=== PATIENT | male | born 1995 | race African-American/Black ===

== ENCOUNTER 2018-03-17 23:20 | Emergency (ER) | payer SELFPAY ==
[~2018-03-17] VITALS: Ht 185.4 cm; Wt 75.0 kg
[~2018-03-17 23:20] MED LIST: ALBUTEROL S2.5 MG/.5 IN; ALBUTEROL0.083 % IN; AMOXIL500 M1 OR; ATUSS DS OR; ORAPRED ODT30 MG OR; PENICILLN VK500 MG PO; PERCOCET 5/325M1 TAB OR; ULTRAM50 MG PO
[2018-03-18 00:24] VITALS: BP 122/70
== END 2018-03-18 | disposition left against medical advice (07) | DRG 392 ==
LOC: ED 23:20
DX: R11.10 Vomiting, unspecified (principal); R19.7 Diarrhea, unspecified; F17.290 Nicotine dependence, other tobacco product, uncomplicated

== ENCOUNTER 2022-11-29 03:01 | Emergency (ER) | payer SELFPAY ==
[~2022-11-29] VITALS: Ht 185.4 cm; Wt 72.0 kg
[2022-11-29] VITALS (11 sets, daily range): BP systolic 110–132; BP diastolic 64–89
[2022-11-29] MEDS ORDERED: AMOXICILLIN500 MG PO (05:30)
[2022-11-29] MEDS ORDERED: FIORICET PO (05:30)
== END 2022-11-29 05:40 | disposition home or self-care (01) | DRG 153 ==
LOC: ED 03:01
DX: J02.9 Acute pharyngitis, unspecified (principal); R51.9 Headache, unspecified; F17.200 Nicotine dependence, unspecified, uncomplicated; Z20.822 Contact with and (suspected) exposure to COVID-19

== ENCOUNTER 2023-05-11 19:29 | Emergency (ER) | payer SELFPAY ==
[~2023-05-11] VITALS: Ht 188 cm; Wt 69.0 kg
[~2023-05-11 19:29] MED LIST changes: +AMOXICILLIN500 MG PO; +FIORICET PO
[2023-05-11 19:37] VITALS: BP 135/109
[2023-05-11] MEDS ORDERED: ONDANSETRON 4 MG/TAB ODT SL ONE (19:45)
[2023-05-11 20:30] VITALS: BP 131/116
[2023-05-11 21:01] VITALS: BP 112/75
[2023-05-11 21:32] VITALS: BP 77/60
[2023-05-11 21:50] VITALS: BP 110/36
[2023-05-12 00:30] VITALS: BP 108/72
== END 2023-05-12 00:30 | disposition home or self-care (01) | DRG 552 ==
LOC: ED 19:29
DX: M43.12 Spondylolisthesis, cervical region (principal); F17.200 Nicotine dependence, unspecified, uncomplicated

== ENCOUNTER 2023-10-21 05:12 | Emergency (ER) | payer SELFPAY ==
[~2023-10-21] VITALS: Ht 188 cm; Wt 77.0 kg
[~2023-10-21 05:12] MED LIST changes: +NAPROXEN500 MG PO
[2023-10-21] MEDS ORDERED: ACETAMINOPHEN 500 MG TAB PO ONE (05:30)
[2023-10-21] MEDS ORDERED: DICLOFENAC SODIUM 75 MG/TAB PO ONE (05:30)
[2023-10-21] MEDS ORDERED: VOLTAREN - GENE75 MG PO (06:43)
[2023-10-21 07:20] LABS: URINE BLOOD DIPSTICK Negative (NEGATIVE); URINE GLUCOSE - DIPSTICK Negative (NEGATIVE); URINE KETONE Trace mg/dL (NEGATIVE); URINE LEUK ESTERASE Trace (NEGATIVE); URINE NITRITE - DIPSTICK Negative (Negative); URINE PH 5.5 (4.5-8.0); URINE PROTEIN - DIPSTICK 100 mg/dL (NEG-TRACE); URINE SPECIFIC GRAVITY >=1.030
[2023-10-21 07:22] LABS: BASO% 0.8 % (0-3); EOS% 1.3 % (0-8); HEMATOCRIT 43.5 % (39.0-50.0); HEMOGLOBIN 15.4 g/dl (14.0-18.0); IMMATURE GRANULOCYTES 0.2 % (0.0-5.0); LYMPH% 34.4 % (15-41); MEAN CELL VOLUME 79.4 fL CALC (80.0-100.0); MEAN CORPUSCULAR HGB 28.1 pG CALC (26.0-32.0); MEAN CORPUSCULAR HGB CONC 35.4 g/dL CAL (32.0-36.0); MONO% 8.9 % (2-13); NEUT# 4.62 thou/uL (1.82-7.42); NEUT% 54.4 % (42-76); RED BLOOD COUNT 5.48 mill/uL (4.70-6.10); RED CELL DISTRI WIDTH 13.2 % (11.5-15.5)
[2023-10-21 07:22] LABS: URINE COLOR Yellow
[2023-10-21 07:24] LABS: URINE BACTERIA MODERATE hpf; URINE EPITHELIAL CELLS FEW EPI/hpf (0-FEW)
[2023-10-21 07:41] LABS: ALBUMIN 4.6 g/dL (3.2-5.0); ALKALINE PHOSPHATASE 71 u/l (38-126); ANION GAP 9 (6-22 (CALC)); BILIRUBIN, TOTAL 2.1 mg/dL (0.2-1.3); BUN 14 mg/dL (9-20); BUN/CREATININE RATIO 12 (12-20 (CALC)); CARBON DIOXIDE 30 mmol/l (22-30); CHLORIDE 106 mmol/l (95-108); CREATININE 1.2 mg/dL (0.7-1.3); ESTIMATED GFR 85 ML/MIN (>=90 (CALC)); ETHYL ALCOHOL 0 mg/dl (0-30); POTASSIUM 3.7 mmol/l (3.5-5.1); SGOT/AST 17 u/l (17-59); SODIUM 142 mmol/l (137-146); TOTAL PROTEIN 7.8 g/dL (6.3-8.2)
[2023-10-21 08:12] VITALS: BP 122/81
== END 2023-10-21 08:12 | DRG 563 ==
LOC: ED 05:12
PROVIDERS: Family Medicine
DX: S29.012A Strain of muscle and tendon of back wall of thorax, initial encounter (principal); R45.851 Suicidal ideations; Z59.00 Homelessness unspecified; F17.200 Nicotine dependence, unspecified, uncomplicated; Z91.51 Personal history of suicidal behavior; X58.XXXA Exposure to other specified factors, initial encounter; Z20.822 Contact with and (suspected) exposure to COVID-19

== ENCOUNTER 2023-10-26 19:17 | Emergency (ER) | payer SELFPAY ==
[~2023-10-26] VITALS: Ht 188 cm; Wt 77.0 kg
[~2023-10-26 19:17] MED LIST changes: +VOLTAREN - GENE75 MG PO
[2023-10-26 20:12] VITALS: BP 117/81
[2023-10-26 20:12] LABS: BASO% 0.9 % (0-3); EOS% 1.9 % (0-8); HEMATOCRIT 46.7 % (39.0-50.0); HEMOGLOBIN 16.5 g/dl (14.0-18.0); IMMATURE GRANULOCYTES 0.6 % (0.0-5.0); LYMPH% 32.5 % (15-41); MEAN CORPUSCULAR HGB 27.9 pG CALC (26.0-32.0); MEAN CORPUSCULAR HGB CONC 35.3 g/dL CAL (32.0-36.0); MONO% 7.1 % (2-13); NEUT# 4.57 thou/uL (1.82-7.42); RED BLOOD COUNT 5.91 mill/uL (4.70-6.10); RED CELL DISTRI WIDTH 13.5 % (11.5-15.5)
[2023-10-26 20:32] LABS: ALBUMIN 4.9 g/dL (3.2-5.0); ALKALINE PHOSPHATASE 66 u/l (38-126); ANION GAP 10 (6-22 (CALC)); BUN 15 mg/dL (9-20); BUN/CREATININE RATIO 14 (12-20 (CALC)); CARBON DIOXIDE 28 mmol/l (22-30); CHLORIDE 107 mmol/l (95-108); CREATININE 1.1 mg/dL (0.7-1.3); ESTIMATED GFR 94 ML/MIN (>=90 (CALC)); ETHYL ALCOHOL 0 mg/dl (0-30); MAGNESIUM 1.8 mg/dL (1.6-2.3); POTASSIUM 4.2 mmol/l (3.5-5.1); SGOT/AST 21 u/l (17-59); SODIUM 141 mmol/l (137-146); TOTAL PROTEIN 8.2 g/dL (6.3-8.2)
[2023-10-26 20:38] LABS: BILIRUBIN, TOTAL 0.4 mg/dL (0.2-1.3)
[2023-10-26 21:00] VITALS: BP 103/69
[2023-10-26 22:48] LABS: URINE BILIRUBIN - DIPSTICK Negative (NEGATIVE); URINE BLOOD DIPSTICK Negative (NEGATIVE); URINE GLUCOSE - DIPSTICK Negative (NEGATIVE); URINE KETONE Negative (NEGATIVE); URINE LEUK ESTERASE Negative (NEGATIVE); URINE NITRITE - DIPSTICK Negative (Negative); URINE PROTEIN - DIPSTICK Negative (NEG-TRACE); URINE SPECIFIC GRAVITY >=1.030; URINE UROBILINOGEN - DIPSTICK 0.2 E.U./dL (0.2)
[2023-10-26 22:57] LABS: URINE COLOR Yellow
== END 2023-10-27 00:40 | DRG 885 ==
LOC: ED 19:17
PROVIDERS: Family Medicine
DX: F22 Delusional disorders (principal); Z59.00 Homelessness unspecified; T43.506A Underdosing of unspecified antipsychotics and neuroleptics, initial encounter; Z91.128 Patient's intentional underdosing of medication regimen for other reason; F17.200 Nicotine dependence, unspecified, uncomplicated; Z20.822 Contact with and (suspected) exposure to COVID-19

== ENCOUNTER 2023-11-08 18:43 | Emergency (ER) | payer SELFPAY ==
[~2023-11-08] VITALS: Ht 188 cm; Wt 65.0 kg
[2023-11-08] MEDS ORDERED: NAPROXEN 250 MG/TAB PO ONE (19:15)
[2023-11-08] MEDS ORDERED: NAPROXEN500 MG PO (19:59)
[2023-11-08 20:55] LABS: URINE BILIRUBIN - DIPSTICK Negative (NEGATIVE); URINE BLOOD DIPSTICK Negative (NEGATIVE); URINE GLUCOSE - DIPSTICK Negative (NEGATIVE); URINE KETONE Negative (NEGATIVE); URINE LEUK ESTERASE Negative (NEGATIVE); URINE NITRITE - DIPSTICK Negative (Negative); URINE PROTEIN - DIPSTICK Trace mg/dL (NEG-TRACE); URINE SPECIFIC GRAVITY 1.025
[2023-11-08 20:56] LABS: URINE COLOR Yellow
[2023-11-08 21:18] LABS: BASO% 0.8 % (0-3); EOS% 0.6 % (0-8); HEMATOCRIT 43.2 % (39.0-50.0); HEMOGLOBIN 15.3 g/dl (14.0-18.0); IMMATURE GRANULOCYTES 0.2 % (0.0-5.0); LYMPH% 25.5 % (15-41); MEAN CELL VOLUME 78.8 fL CALC (80.0-100.0); MEAN CORPUSCULAR HGB 27.9 pG CALC (26.0-32.0); MEAN CORPUSCULAR HGB CONC 35.4 g/dL CAL (32.0-36.0); MONO% 5.4 % (2-13); NEUT# 5.73 thou/uL (1.82-7.42); NEUT% 67.5 % (42-76); RED BLOOD COUNT 5.48 mill/uL (4.70-6.10); RED CELL DISTRI WIDTH 13.7 % (11.5-15.5)
[2023-11-08 21:49] LABS: ALBUMIN 4.7 g/dL (3.2-5.0); MAGNESIUM 1.7 mg/dL (1.6-2.3); POTASSIUM 3.8 mmol/l (3.5-5.1); TOTAL PROTEIN 7.6 g/dL (6.3-8.2)
[2023-11-08 21:54] LABS: BILIRUBIN, TOTAL 1.2 mg/dL (0.2-1.3)
[2023-11-08 22:19] LABS: TSH, 3RD GENERATION 1.03 uIU/mL (0.47 - 4.68)
== END 2023-11-09 01:43 | DRG 556 ==
LOC: ED 18:43
PROVIDERS: Internal Medicine
DX: M25.571 Pain in right ankle and joints of right foot (principal); R45.851 Suicidal ideations; F32.A Depression, unspecified; F17.200 Nicotine dependence, unspecified, uncomplicated; Z20.822 Contact with and (suspected) exposure to COVID-19

== ENCOUNTER 2024-04-07 21:16 | Emergency (ER) | payer SELFPAY ==
[~2024-04-07] VITALS: Ht 188 cm; Wt 74.0 kg
[2024-04-07 21:40] VITALS: BP 144/87
[2024-04-07] MEDS ORDERED: SODIUM CHLORIDE 0.9% 1,000 ML IV STA (21:41)
[2024-04-07] MEDS ORDERED: ALUM & MAG HYDROX-SIMETHICONE 30 ML PO ONE (21:45)
[2024-04-07] MEDS ORDERED: LIDOCAINE VISCOUS 2% 15 ML UDC PO ONE (21:45)
[2024-04-07 22:03] LABS: BASO% 0.8 % (0-3); EOS% 1.7 % (0-8); HEMATOCRIT 43.7 % (39.0-50.0); HEMOGLOBIN 15.6 g/dl (14.0-18.0); IMMATURE GRANULOCYTES 0.4 % (0.0-5.0); LYMPH% 36.1 % (15-41); MEAN CELL VOLUME 78.7 fL CALC (80.0-100.0); MEAN CORPUSCULAR HGB 28.1 pG CALC (26.0-32.0); MEAN CORPUSCULAR HGB CONC 35.7 g/dL CAL (32.0-36.0); MONO% 7.6 % (2-13); NEUT# 4.17 thou/uL (1.82-7.42); NEUT% 53.4 % (42-76); RED BLOOD COUNT 5.55 mill/uL (4.70-6.10); RED CELL DISTRI WIDTH 13.1 % (11.5-15.5)
[2024-04-07 22:17] LABS: ALBUMIN 4.8 g/dL (3.2-5.0); ALKALINE PHOSPHATASE 76 u/l (38-126); ANION GAP 13 (6-22 (CALC)); BILIRUBIN, TOTAL 0.9 mg/dL (0.2-1.3); BUN 4 mg/dL (9-20); BUN/CREATININE RATIO 5 (12-20 (CALC)); CARBON DIOXIDE 29 mmol/l (22-30); CHLORIDE 102 mmol/l (95-108); ESTIMATED GFR 105 ML/MIN (>=90 (CALC)); ETHYL ALCOHOL 0 mg/dl (0-30); LIPASE 48 u/l (23-300); SGOT/AST 23 u/l (17-59); SODIUM 140 mmol/l (137-146); TOTAL PROTEIN 7.7 g/dL (6.3-8.2)
[2024-04-07 22:33] VITALS: BP 135/74
[2024-04-07 22:55] LABS: URINE BILIRUBIN - DIPSTICK Negative (NEGATIVE); URINE BLOOD DIPSTICK Negative (NEGATIVE); URINE COLOR Yellow; URINE GLUCOSE - DIPSTICK Negative (NEGATIVE); URINE KETONE Negative (NEGATIVE); URINE LEUK ESTERASE Negative (NEGATIVE); URINE NITRITE - DIPSTICK Negative (Negative); URINE PROTEIN - DIPSTICK Negative (NEG-TRACE); URINE SPECIFIC GRAVITY 1.015
[2024-04-07 23:01] VITALS: BP 123/79
[2024-04-07 23:15] VITALS: BP 123/79
[2024-04-07] MEDS ORDERED: MAGNESIUM CITRATE 296 ML/BTL PO ONE (23:15)
== END 2024-04-07 23:15 | disposition home or self-care (01) | DRG 392 ==
LOC: ED 21:16
PROVIDERS: Family Medicine
DX: K59.00 Constipation, unspecified (principal); F32.A Depression, unspecified; Z20.822 Contact with and (suspected) exposure to COVID-19

== ENCOUNTER 2024-04-08 01:25 | Emergency (ER) | payer SELFPAY ==
[~2024-04-08] VITALS: Ht 188 cm; Wt 75.0 kg
[2024-04-08] MEDS ORDERED: ACETAMINOPHEN 500 MG TAB PO ONE (01:40)
[2024-04-08 01:42] VITALS: BP 117/68
[2024-04-08 01:45] VITALS: BP 126/72
[2024-04-08] MEDS ORDERED: IBUPROFEN 600 MG/TAB PO ONE (01:55)
[2024-04-08 02:00] VITALS: BP 109/67
[2024-04-08 02:04] VITALS: BP 109/67
[2024-04-09] MEDS ORDERED: IBUPROFEN200 MG PO (22:48)
== END 2024-04-08 02:04 | disposition home or self-care (01) | DRG 103 ==
LOC: ED 01:25
DX: R51.9 Headache, unspecified (principal)

== ENCOUNTER 2024-04-09 22:22 | Emergency (ER) | payer SELFPAY ==
[~2024-04-09] VITALS: Ht 188 cm; Wt 74.0 kg
[2024-04-09] MEDS ORDERED: IBUPROFEN 200 MG/TAB PO ONE (22:45)
[2024-04-09] MEDS ORDERED: IBUPROFEN200 MG PO (22:48)
[2024-04-09 22:55] VITALS: BP 132/77
== END 2024-04-09 22:55 | disposition home or self-care (01) | DRG 556 ==
LOC: ED 22:22
DX: M25.562 Pain in left knee (principal); M25.561 Pain in right knee; F32.A Depression, unspecified; F17.200 Nicotine dependence, unspecified, uncomplicated; Z59.00 Homelessness unspecified

== ENCOUNTER 2024-04-09 23:51 | Emergency (ER) | payer SELFPAY ==
[~2024-04-09] VITALS: Ht 188 cm; Wt 74.0 kg
[~2024-04-09 23:51] MED LIST changes: +IBUPROFEN200 MG PO
[2024-04-10 00:15] LABS: BASO% 0.6 % (0-3); EOS% 1.2 % (0-8); HEMATOCRIT 48.1 % (39.0-50.0); HEMOGLOBIN 16.7 g/dl (14.0-18.0); IMMATURE GRANULOCYTES 0.2 % (0.0-5.0); LYMPH% 37.1 % (15-41); MEAN CORPUSCULAR HGB 27.8 pG CALC (26.0-32.0); MEAN CORPUSCULAR HGB CONC 34.7 g/dL CAL (32.0-36.0); MONO% 8.1 % (2-13); NEUT# 4.36 thou/uL (1.82-7.42); NEUT% 52.8 % (42-76); RED BLOOD COUNT 6.01 mill/uL (4.70-6.10); RED CELL DISTRI WIDTH 13.4 % (11.5-15.5)
[2024-04-10 00:19] LABS: URINE BLOOD DIPSTICK Trace-lysed (NEGATIVE); URINE GLUCOSE - DIPSTICK Negative (NEGATIVE); URINE KETONE 40 mg/dL (NEGATIVE); URINE LEUK ESTERASE Negative (NEGATIVE); URINE NITRITE - DIPSTICK Negative (Negative); URINE PH 5.5 (4.5-8.0); URINE PROTEIN - DIPSTICK Negative (NEG-TRACE); URINE SPECIFIC GRAVITY >=1.030; URINE UROBILINOGEN - DIPSTICK 0.2 E.U./dL (0.2)
[2024-04-10 00:20] LABS: ALBUMIN 5.2 g/dL (3.2-5.0); ALKALINE PHOSPHATASE 91 u/l (38-126); ANION GAP 17 (6-22 (CALC)); BUN 13 mg/dL (9-20); BUN/CREATININE RATIO 12 (12-20 (CALC)); CARBON DIOXIDE 26 mmol/l (22-30); CHLORIDE 102 mmol/l (95-108); CREATININE 1.1 mg/dL (0.7-1.3); ESTIMATED GFR 94 ML/MIN (>=90 (CALC)); POTASSIUM 3.9 mmol/l (3.5-5.1); SGOT/AST 26 u/l (17-59); SODIUM 141 mmol/l (137-146); TOTAL PROTEIN 8.9 g/dL (6.3-8.2)
[2024-04-10 00:21] LABS: BILIRUBIN, TOTAL 1.6 mg/dL (0.2-1.3)
[2024-04-10 00:24] LABS: URINE COLOR Yellow
[2024-04-10 01:54] VITALS: BP 115/70
== END 2024-04-10 01:54 | DRG 880 ==
LOC: ED 23:51
PROVIDERS: Family Medicine
DX: R45.851 Suicidal ideations (principal); F32.A Depression, unspecified; F17.200 Nicotine dependence, unspecified, uncomplicated; Z20.822 Contact with and (suspected) exposure to COVID-19